=== PATIENT | male | born 1985 ===

== ENCOUNTER → 2023-10-14 14:49 | Outpatient (BNVA) | payer OTHER, SELFPAY | PROVIDERS: Family Provider Nurse Practitioner Family; PCP Nurse Practitioner Family; Referring Provider Family Medicine; Visit Provider Physician Assistant | DX: M75.42 Impingement syndrome of left shoulder; G56.02 Carpal tunnel syndrome, left upper limb | CPT/HCPCS: 73030 ==

== ENCOUNTER 2023-11-27 12:25 | Outpatient (CLI) | payer OTHER, SELFPAY ==
--- NOTE | 2023-11-27 13:00 | MR_ITS ---
WS: [id number] MRI LEFT SHOULDER HISTORY: Fall 1 year ago. Shoulder pain. COMPARISON: 10/14/2023 TECHNIQUE: Multiplanar sequences of the shoulder joint are submitted. Moderate AC joint arthritis with encroachment upon the myotendinous portion of the supraspinatus. Mil d bursitis surrounding the AC joint. Slight downsloping of the acromion with mild subacromial impinge ment. No os acromion. Normal position of the biceps tendon. 4 mm insertion site tear of the distal supraspinatus. Small amount of fluid extends into the distal s upraspinatus tendon along the central tendon. No tendon retraction. No muscle atrophy. No muscle thaddeus a. There is mild tendinopathy of the subscapularis tendon but no full-thickness tear. Normal infraspi natus tendon. Normal position of the glenoid. No labral tear. IMPRESSION: 1. Moderate AC joint arthritis with mild encroachment upon the myotendinous portion of the supraspin atus. 2. 4 mm insertion site tear supraspinatus with intrasubstance extension. No rotator cuff muscle atro phy or edema. 3. No labral tear. 4. Mild distal subscapularis tendinopathy
== END 2023-11-27 12:26 | disposition home or self-care (01) ==
LOC: RAD 12:25
PROVIDERS: Family Provider Nurse Practitioner Family; PCP Nurse Practitioner Family; Visit Provider Physician Assistant
DX: M25.512 Pain in left shoulder (principal); M75.42 Impingement syndrome of left shoulder; M75.102 Unspecified rotator cuff tear or rupture of left shoulder, not specified as traumatic; M19.012 Primary osteoarthritis, left shoulder
CPT/HCPCS: 73221

== ENCOUNTER 2024-04-07 05:44 | Day surgery (SDC) | payer OTHER, SELFPAY ==
[2024-04-07] VITALS (13 sets, daily range): BP systolic 122–168; BP diastolic 74–99; PULSE 71–90; RESP 12–22; TEMP 36.1–36.8; O2SAT 94–100
[2024-04-07] MEDS: sodium chloride 0.9% 1,000 ML 30 ML IV (06:21)
[2024-04-07] MEDS: acetaminophen 1,000 MG/100 ML PIGGYBACK 400 MG IV (06:22)
[2024-04-07] MEDS: scopolamine 1.5 Patch 1 PATCH TRANSDERMA (06:29)
--- NOTE | 2024-04-07 07:14 | ANES.PREANE2 ---
Pre-Anesthetic Assessment Height/Weight: Height 1.8 m Weight 90.718 kg Temp Pulse Resp BP Pulse Ox O2 Del Method 98.3 F 84 16 159/99 99 Room Air 04/07/24 06:04 04/07/24 06:04 04/07/24 06:04 04/07/24 06:04 04/07/24 06:04 04/07/24 06:04 Operation Date: 04/07/24 07:50 Proposed Procedures p Carpal Tunnel Release(Left) - Matthias Washita, DO s shoulder diagnostic and surgical arthroscopy(Left) - Matthais Washita, DO s Rotator Cuff Repair - Arthroscopy(Left) - Matthias Washita DO s Subacromial Decompression(Left) - Matthias Abraham DO s Bicep Tenodesis(Left) - Matthias Washita DO Familial anesthetic complications: None Was Beta Kaela taken within 24 hours: N/A Was Clonidine taken within 24 hours: N/A Last intake: Intake Last Liquid Date 04/06/24 Last Liquid Time 23:00 Last Solid Date 04/06/24 Last Solid Time 23:00 Social Tobacco and No alcohol Exam alert, oriented x 3, clear to auscultation bilaterally and regular rate & rhythm Airway Mallampati: Class III Dentition: other (lots of damage) Anesthetic Plan ASA status: 2 Anesthesia: General and Regional (specify below) Risk of > 500 ml blood loss (7ml/kg in children): No Medications/Allergies Home Medications Medication Instructions Recorded Confirmed Last Taken Type No Known Home Medications 10/14/23 04/07/24 Unknown History Allergies Allergy/AdvReac Type Severity Reaction Status Date / Time No Known Allergies Allergy Verified 02/12/24 13:40 Current Medications Generic Name Dose Route Start Last Admin Trade Name Freq PRN Reason Stop Dose Admin Sodium Chloride 1,000 mls @ 30 mls/hr 04/07/24 06:00 04/07/24 06:21 Sodium Chloride 0.9% IV 04/08/24 05:59 30 mls/hr .Q24H ENEDELIA Administration Data Anesthesia Cardiac Studies: No Data to Display
--- NOTE | 2024-04-07 07:15 | ANES.PROC ---
Anesthesia Procedures Procedure/Date: 04/07/24 Nerve Block ^: Nerve Block 1: Main Anesthesia: general anesthesia Time Out Performed: Yes Consent: requested by attending/covering physician, from patient, from other, risks and benefits reviewed and patient agrees to proceed Nerve block location: interscalene (L) Anesthesia monitors applied: pulse oximetry, EKG, BP cuff and oxygen Nerve block position: semi sitting Anesthetic Used: ropivicaine 0.5% (20 ml) and with decadron (4 mg) Ultrasound used to: recognize landmarks, visualize and ID brachial plexus, in supraclavicular region and visualize and ID interscalene groove Nerve Stimulator Used?: No Interscalene/Femoral BLK: 2 stimuplex 22 g needle used for position and inplane approach, visualize local anesthetic spread and no vascular puncture identified Injection: neg aspiration of heme Patient Tolerated Procedure: well Complications: none
--- NOTE | 2024-04-07 08:04 | P.HP_ITS ---
Same Day Surgery H&P Indication for Procedure/HPI DATE OF PROCEDURE: April 07, 2024 CHIEF COMPLAINT/INDICATIONFOR SURGICAL PROCEDURE: Left carpal tunnel syndrome, left shoulder biceps tendinitis, left shoulder rotator cuff tear, left shoulder rotator cuff impingement/subacromial bursitis PREOP DIAGNOSIS: Left carpal tunnel syndrome, left shoulder biceps tendinitis, left shoulder PLANNED PROCEDURE: Operation Date: 04/07/24 07:50 Proposed Procedures p Carpal Tunnel Release(Left) - Matthias Rosario DO s shoulder diagnostic and surgical arthroscopy(Left) - Matthias Edmonson DO s Rotator Cuff Repair - Arthroscopy(Left) - Matthias Edmonson DO s Subacromial Decompression(Left) - Matthias Edmonson, DO s Bicep Tenodesis(Left) - Matthias Edmonson, DO Medications/Allergies* Allergies/Adverse Reactions Allergy/AdvReac Type Severity Reaction Status Date / Time No Known Allergies Allergy Verified 02/12/24 13:40 Current Medications: Generic Name Dose Route Start Last Admin Trade Name Freq PRN Reason Stop Dose Admin Sodium Chloride 1,000 mls @ 30 mls/hr 04/07/24 06:00 04/07/24 06:21 Sodium Chloride 0.9% IV 04/08/24 05:59 30 mls/hr .Q24H ENEDELIA Administration Pertinent Exam Findings alert, oriented x 3, operative site marked and procedure specific exam findings Please refer to detailed orthopedic examination on 02/11/2024: Listed below: Cervical Spine -Negative Spurling's Test Left Shoulder -Tender to palpation over biceps tendon and lateral, posterior aspect of shoulder -Range of motion active 0-180 degrees with pain at end range of motion. -Rotator cuff strength external and internal 5/5 with elbows at the side. -Jobes test-positive with pain -No tenderness palpation over AC joint, negative crossover arm Neer's test -Speed's Test-positive -O'Briens test-positive with weakness -Cespedes impingement-positive -Radial pulse 2+, normal cap refill under 2 seconds and patient can wiggle fingers. -Sensation to hand intact Left hand and elbow-positive Phalen sign at wrist, positive median nerve compression test, mildly positive Tinel's sign at wrist. No thenar atrophy and no thenar weakness noted. Negative Tinels elbow sign and negative elbow flexion test. No intrinsic muscle weakness noted Recommendations Surgery/Procedure today Other Plans: Plan to proceed to the OR today for left carpal tunnel release, and the left shoulder diagnostic and surgical arthroscopy with rotator cuff repair, subacromial decompression, possible biceps tenodesis. Patient understands the ins and outs procedure the risk benefits complication alternatives surgery and through shared decision make elects proceed with surgical invention all questions answered at this time. Coding Level of Care Code Acute Code for Chg Fwd
[2024-04-07] MEDS: ceFAZolin 2,000 MG in sodium chloride 0.9% (plus) 50 ML 100 MG IV (08:24)
[2024-04-07] MEDS: ROPivacaine 0.5% SDV 30 mL 25 MG INJECTION (09:52)
[2024-04-07] MEDS: EPINEPHrine 1 mg/mL INJ 6 MG XX (09:52)
[2024-04-07] MEDS: lidocaine-epi 1% 20 mL INJ 5 ML INJECTION (09:52)
[2024-04-07] MEDS: meperidine 50 mg/mL INJ 12.5 MG IVP ×2 (11:08→11:33)
--- NOTE | 2024-04-07 11:10 | W.PM.BPON ---
Date of Procedure: [04/07/2024] Surgeon: [Dr. Abraham DO] Transportation Agent(s): [Atul Rosario PA-C] Procedure(s) performed: [Left carpal tunnel release Left shoulder diagnostic and surgical arthroscopy Biceps tenodesis Rotator cuff repair (small) Subacromial decompression Labral debridement] Findings of the procedure(s): [Left wrist carpal tunnel syndrome, left shoulder biceps tendon tear, rotator cuff tear, subacromial bursitis, labral tear.] Estimated blood loss: [10 mL] Specimen(s) removed: [N/A] Post-operative diagnosis: [Left wrist carpal tunnel syndrome, left shoulder biceps tendon tear, rotator cuff tear, subacromial bursitis, labral tear.]
--- NOTE | 2024-04-07 11:13 | PM.PACU ---
PACU note Narrative: Patient is a 38-year-old male that underwent a left shoulder diagnostic and surgical arthroscopy and left carpal tunnel release. Patient transferred to PACU in stable condition. Pain is well controlled. shoulder Dressing on , dry and in place. Dressing on hand is dry and in place. Patient's operative arm is in a shoulder immobilizer. Patient is awake and alert and able to respond to my questions accordingly. Patient's fingers are warm with good perfusion. Normal cap refill under 2 seconds. Unable to assess further range of motion in arm due to sling. Unable to assess sensation due to residual localized anesthetic. Exam: awake Disposition: discharged
--- NOTE | 2024-04-07 11:23 | PM.OP ---
Operative Report Date of procedure: April 07, 2024 Surgeon: Matthias Rosario DO [employer] Handling: Atul Rosario PA-C: PA was necessary for assistance in this case with shoulder positioning to execute the procedure, retraction neurovascular structures assistance with instrumentation, as well as implant fixation when necessary, assist with wound closure and dressing application. Procedure: Preop Diagnosis Left carpal tunnel syndrome, left shoulder biceps tendinitis, left shoulder rotator cuff tear, left shoulder rotator cuff impingement/subacromial bursitis Post-op diagnosis: Left wrist carpal tunnel syndrome, left shoulder biceps tendon tear with superior labral tear, rotator cuff tear, subacromial bursitis Procedure done: Left carpal tunnel release Left shoulder diagnostic and surgical arthroscopy rotator cuff repair (small) Left shoulder diagnostic and surgical arthroscopy biceps tenodesis Left shoulder diagnostic and surgical arthroscopy subacromial decompression (acromioplasty and bursectomy) Left shoulder diagnostic and surgical arthroscopy labral debridement Surgeon: Matthias Rosario DO Implants: 2.9 mm biceps loop and tack tenodesis implant system Suture anchor 4.75 bio composite swivel lock Arthrex scorpion suture passer and fiber tape Estimated blood loss: 10mL total Tourniquet 12 minutes for left carpal tunnel release IV fluids: 800 mL Complications: None Findings: See operative report narrative Condition: stable Disposition: same day Procedure: Brief History: Patient been seen and worked up in the outpatient setting for left shoulder pain and Left hand numbness and tingling. Left shoulder MRI results are listed below.? Patient's failed conservative treatment. We talked about treatment options far as nonoperative and operative intervention. We talked about risk benefits complication alternatives surgical nonsurgical treatment options.? Patient at this point time through shared decision making like to proceed with a left shoulder diagnostic and surgical arthroscopy as well as while under anesthesia pt would like to have the left carpal tunnel released as patient does have classic carpal tunnel findings on examination. Through shared decision making agreed to proceed with this plan. All questions answered. Understanding risk of surgery pt agrees to proceed with surgical intervention.? All questions have been answered at this time.? Patient elects proceed with surgery left carpal tunnel release, and the left shoulder diagnostic and surgical arthroscopy with rotator cuff repair, subacromial decompression, possible biceps tenodesis. IMPRESSION: 1. Moderate AC joint arthritis with mild encroachment upon the myotendinous portion of the supraspinatus. 2. 4 mm insertion site tear supraspinatus with intrasubstance extension. No rotator cuff muscle atrophy or edema. 3. No labral tear. 4. Mild distal subscapularis tendinopathy . Procedure: Patient seen evaluated in the preoperative holding area.? Consent reviewed and signed with patient.? Once again reviewed patient's MRI results as well as? planned surgical intervention.? Correct extremity marked.? Patient seen evaluated by anesthesia department received regional anesthesia.? Once ready for surgery was taken back to the operative suite.? Patient then subsequently underwent anesthesia per the anesthesia department was transported onto the OR table.? Patient was then placed into a lateral decubitus position with a beanbag and was appropriately secured to the bed.? All bony prominences well-padded.? Patient then had the left upper extremity was then prepped and draped in standard orthopedic fashion.? Patient received appropriate preoperative antibiotics.? Final timeout performed. The left upper extremity was then held in hanging from traction utilizing sterile technique.? Next started with standard diagnostic and surgical arthroscopy with posterior portal position introduced arthroscope into the glenohumeral joint.? Visualized the glenohumeral joint I then introduced a spinal needle within the rotator cuff interval to confirm appropriate anterior portal placement.? Once this was confirmed I then made my small incision and then introduced my arthroscopic shaver into the glenohumeral joint.? After flushing the joint fluid, was clearly evident patient had biceps tendon tearing as well as Superior labral tear. Patient had appreciable unstable biceps anchor most pronounced in the superior labrum. Given there appears to be healthy intra-articular tendon plan was for an intra-articular biceps tenodesis at the superior portion as it enters the intertubercular groove. Thermal wand introduced into the rotator interval. I then release of the rotator interval to have appropriate visualization and the ability to perform biceps tenodesis. At this point I established a purple passport cannula which was introduced. Next I performed an Arthrex loop and tap biceps tenodesis. Passer was then made around the tendon luggage tag stitch around and then thru the tendon and around twice I then utilized a thermal wand to release the biceps tendon at the anchor to perform with tenotomy. I then loaded with suture onto an Arthrex 4.75 swivel lock suture anchor. A punch was then placed in appropriate position at the entry point into the intertubercular groove just superior to the subscapularis tendon. Punch was then introduced to the appropriate depth. The suture loaded on the swivel lock was then advanced held under appropriate tension and shoulder lock anchor was then advanced and had excellent fixation. Excess suture was then cut biceps tenodesis was complete. I then utilized a thermal wand to seal the edges of the superior labrum. Visualization of the labrum was grossly intact with just slight fraying throughout. Thermal wand was used to seal up the frayed edges of the labrum. Next Axillary recess was free from loose bodies.? Small tear was noted in the undersurface of the supraspinatus tendon and marked this with a spinal needle. ?This completed my work within the glenohumeral joint all fluid was suctioned free of the joint.? ?Next I reintroduced the arthroscope posteriorly and went to the subacromial space.? I established my lateral working portal.? Thermal wand was then introduced laterally and then I subsequently performed extensive bursectomy of the subacromial space.? Patient had pronounced anterior bone spur.?? I then performed an acromioplasty to complete my subacromial decompression prior to addressing the rotator cuff tear.? Patient did not have any significant AC joint arthritis and no significant pain on examination as a result given his young age the AC joint was left alone. Next the arthroscopic shaver was then used previous spinal needle spot that is marked the small hole in the rotator cuff this was consistent with a small full-thickness tear.? Given the small size this did not need a medial and lateral row configuration as result my plan was for a horizontal mattress stitch with a single lateral row anchor.? As result I loaded and Arthrex scorpion with fiber tape and subsequently.? A horizontal mattress purchase appropriately spaced to the small tear of the supraspinatus tendon.? At this point in time and then introduced a shaver to debride the rotator cuff footprint and decorticate the footprint in preparation for repair, next I marked by swivel lock position.? Fiber tape was then loaded into a 4.75 swivel lock I then subsequently punched and then subsequently placement 4.75 swivel lock while maintaining appropriate tension and repair of rotator cuff and this was advanced with excellent fixation I then had a final confirmation of appropriate repair of the supraspinatus rotator cuff tendon tear.? Sutures were then cut with an arthroscopic suture cutter and subsequently evaluated the rotator cuff repair.? Repair was found to be satisfactory?shoulder?was taken through range of motion and the repair moved as a unit with no evidence of loss of fixation. I then switched the arthroscope to the lateral portal to confirm this tension-free repair.? I took the?shoulder?through range of motion and the rotator cuff repair was stable and moved as a unit. Next I then introduced the arthroscopic shaver posteriorly to complete my subacromial decompression appropriate complaining all the way up to the lateral edge of the acromion.? This completed the surgery.? All fluid was suctioned from the?shoulder.? All instruments were removed.? The lateral incision was then closed with nylon stitches.? As well as the portal sites closed with portal nylon stitches.? Xeroform 4 x 4's ABD and tape was then applied to the Left?shoulder. All drapes were completely taken down. At this point in time an armboard was applied to the left arm with plan for proceeding with left carpal tunnel release. Beanbag was deflated patient was laid in supine position left arm to the armboard. Patient bed was then rotated. Patient's left upper extremity was then prepped and draped in standard orthopedic fashion.? Final timeout performed.? Once again confirmed patient had received appropriate preoperative antibiotics. Under sterile aseptic technique patient received local anesthesia over the preplanned carpal tunnel incision site.? Esmarch tourniquet was used exsanguinate the left upper extremity and tourniquet and used as the tourniquet to the left forearm this allowed for no bicep involvement with my tourniquet. A standard mini open carpal tunnel incision was made.? Starting distally at Shaw's cardinal line in line with the fourth ray extending proximally distal to the wrist crease.? Sharp scalpel incision was made through skin and subcutaneous tissue.? Self-retaining retractor was placed and the palmar fascia was identified.? This was then split longitudinally and direct visualization of the transverse carpal ligament was then made.? I then utilizing scalpel feathered through the transverse carpal ligament until I entered the floor of the transverse carpal tunnel ligament into the carpal tunnel.? Next I switched to dissection scissors and completed my release of the transverse carpal ligament distally with care to protect the recurrent motor branch.? I completely released into the palmar fat and until no entrapment was noted distally.? Care was made to protect the superficial palmar arch during my distal dissection.? Next I then placed a [place] underneath the transverse carpal tunnel ligament to protect the contents of the carpal tunnel and subsequently utilizing dissection scissors under loupe magnification completely released the transverse carpal ligament proximally into the median antebrachial fascia.? Care was made to protect the palmar cutaneous branch by keeping my scissors curved ulnarly.? Once completely released, I then placed my [place] and had appropriate decompression of the carpal tunnel proximally as well as distally.? I then inspected the contents of the carpal tunnel which showed an hourglass shape of the median nerve showing its compression.? No masses were noted.? Tendons appeared healthy.? Wound was then thoroughly irrigated.? Tourniquet removed.? Hemostasis satisfactory with bipolar electrocautery.? I then closed the incision with interrupted nylon stitches.? Xeroform 4 x 4's and a bulky soft dressing was applied to the left upper extremity as well as sling with abduction pillow to the left shoulder.? Patient was then awakened from anesthesia and taken to PACU in stable condition.? Patient tolerated procedure without complications. Disposition: Patient taken to PACU in stable condition recovering well.? Dressing clean dry and intact.? Patient will receive appropriate discharge instructions as well as pain medication postoperatively.? Patient to follow-up with me in the office in 2 weeks.? Patient to follow rotator cuff repair and bicep tenodesis protocol. Patient to be nonweightbearing on the active range of motion of the left shoulder. Patient should keep incision clean dry and intact.? Patient understands if any questions or concerns he may contact the office.
--- NOTE | 2024-04-07 12:50 | ANE.PACU2 ---
Inpatient post-anesthesia follow up: Airway intact: Yes Vital signs: Temperature 98.0 F Pulse Rate 79 Respiratory Rate 16 Blood Pressure 131/90 Pulse Oximetry 97 Oxygen Delivery Me thod Room Air Oxygen Flow Rate 8 Fraction of Inspir ed Oxygen Hydration adequate: Yes Nausea and vomiting: No Pain level: 1 Mental status: Baseline
== END 2024-04-07 12:50 | disposition home or self-care (01) ==
PROVIDERS: Family Provider Nurse Practitioner Family; Visit Provider Student in an Organized Health Care Education/Training Program
PROC: (CPT 64721; principal; 2024-04-07 07:30)
PROC: (CPT 29805; 2024-04-07 07:30)
PROC: 0LQ24ZZ Repair Left Shoulder Tendon, Percutaneous Endoscopic Approach (ICD-10-PCS; CPT 29827; 2024-04-07 07:30)
PROC: (CPT 29826; 2024-04-07 07:30)
PROC: (CPT 23430; 2024-04-07 07:30)
PROC: (CPT 29826; 2024-04-07 07:30)
DX: M75.102 Unspecified rotator cuff tear or rupture of left shoulder, not specified as traumatic (principal); M75.52 Bursitis of left shoulder; G56.02 Carpal tunnel syndrome, left upper limb; S43.432A Superior glenoid labrum lesion of left shoulder, initial encounter; X58.XXXA Exposure to other specified factors, initial encounter
CPT/HCPCS: 29826; 29827; 29828; 64721; C1713; J0131; J0171; J0690; J1100; J2175; J2405; J2704; J2795; J3010; J3490; J7030

== ENCOUNTER 2024-05-25 06:00 | Outpatient (RCR) | payer OTHER, SELFPAY | END 2024-06-24 23:59 | disposition home or self-care (01) | LOC: MPT 06:00 | PROVIDERS: Visit Provider Physician Assistant | DX: Z98.890 Other specified postprocedural states (principal) | CPT/HCPCS: 97110; 97140; 97162; G0283 ==

== ENCOUNTER 2024-06-25 06:00 | Outpatient (RCR) | payer OTHER, SELFPAY | END 2024-07-24 23:59 | disposition home or self-care (01) | LOC: MPT 06:00 | PROVIDERS: Visit Provider Physician Assistant | DX: Z98.890 Other specified postprocedural states (principal) | CPT/HCPCS: 97110; 97140 ==

== ENCOUNTER 2024-07-25 06:00 | Outpatient (RCR) | payer OTHER, SELFPAY | END 2024-08-24 23:59 | disposition home or self-care (01) | LOC: MPT 06:00 | PROVIDERS: Visit Provider Physician Assistant | DX: Z98.890 Other specified postprocedural states (principal) | CPT/HCPCS: 97110; 97140 ==